=== PATIENT | female | born 1980 | race Caucasian/White ===

== ENCOUNTER → 2017-01-09 | Outpatient (CLI) | payer OTHER ==
--- NOTE | 2017-01-12 17:16 | RAD ---
EXAM DESCRIPTION: Wrist,Right 3 Views CLINICAL HISTORY: 36 years, Female, CLOSED FX OF DISTAL END OF RADIUS COMPARISON: None FINDINGS: Three-view right wrist demonstrates nondisplaced nonangulated intra-articular fracture distal radial epiphysis extending into the medial aspect of the joint. No ulnar fracture. Carpal bones unremarkable. IMPRESSION: 1. Nondisplaced nonangulated intra-articular fracture distal radius-acute Electronically signed by: Jaziel Tellez MD 01/12/2017 5:15 PM CDT
== END | disposition home or self-care (01) ==
LOC: RAD 07:26
PROVIDERS: ATTEND Orthopaedic Surgery
DX: S52.501A Unspecified fracture of the lower end of right radius, initial encounter for closed fracture (principal)

== ENCOUNTER → 2017-01-23 | Outpatient (CLI) | payer OTHER ==
--- NOTE | 2017-01-23 16:44 | RAD ---
EXAM DESCRIPTION: Wrist,Right 3 Views right CLINICAL HISTORY: 36 years, Female, FX radius COMPARISON: January 09 FINDINGS: Intra-articular nondisplaced fracture distal medial radius shows interval but incomplete healing. Less soft tissue swelling around the fracture. IMPRESSION: Interval but incomplete healing distal medial radial intra-articular fracture. Stable alignment. Decreased soft tissue swelling. Electronically signed by: Robert Ravi MD 01/23/2017 4:43 PM CDT
== END | disposition home or self-care (01) ==
LOC: RAD 07:21
PROVIDERS: ATTEND Orthopaedic Surgery
DX: S52.501D Unspecified fracture of the lower end of right radius, subsequent encounter for closed fracture with routine healing (principal)

== ENCOUNTER → 2017-02-06 | Outpatient (CLI) | payer OTHER ==
--- NOTE | 2017-02-07 08:40 | RAD ---
EXAM DESCRIPTION: Wrist,Right 3 Views CLINICAL HISTORY: UNSPECIFIED FRACTURE OF THE LOWER END OF RIGHT RADIUS FINDINGS/ IMPRESSION: Comparison 01/23/2017 Continued healing distal radial fracture with faint sclerotic line seen at the metaphysis epiphysis junction. No acute bony abnormality Electronically signed by: Sonny Stoner MD 02/07/2017 8:39 AM CDT
== END | disposition home or self-care (01) ==
LOC: RAD 07:33
PROVIDERS: ATTEND Orthopaedic Surgery
DX: S52.501D Unspecified fracture of the lower end of right radius, subsequent encounter for closed fracture with routine healing (principal)

== ENCOUNTER → 2018-08-05 | Outpatient (CLI) | payer BC ==
--- NOTE | 2018-08-06 11:33 | MAM ---
EXAM DESCRIPTION: 3D Diagnostic, Left: Digital Mammography CLINICAL HISTORY: 37 yearsFemaleINCONCLUSIVE STUDY anterior lateral left breast mass.. No personal or family history of breast cancer. Childbirth. Premenopausal. No HRT. Lifetime risk of developing breast cancer (Tyrer-Cuzick model) percentage is 11.1. COMPARISON: 2-D digital screening bilateral mammography 08/29/2015. Targeted bilateral breast ultrasound included with this examination.. TECHNIQUE: Bilateral MLO, CC, and LM projection full-field images, digital mammographic tomosynthesis technique. Bilateral 2-D digital full-field MLO images. CAD not utilized. FINDINGS: The breast parenchymal density pattern is: Heterogeneously dense breast tissue, which may obscure small masses. No skin thickening or nipple retraction skin marker anterior left breast 3:00-4:00 position 3 cm from the nipple. Circumscribed masslike densities 4 clock position left breast in the anterior third in the middle third. Approximate diameter 2.8 and 2.2 cm. The more posterior mass is approximately 6 cm from the nipple. Not associated with microcalcifications. Multiple circumscribed mass densities noted in the anterior middle and posterior third of the right breast. Approximately 5 of these are visualized. These range in size from 1.4 cm to 2.1 cm. Location 8:30 to 10:00 positions with the most posterior mass approximately 6.5 cm from the nipple. Not associated with calcifications. There are small calcifications bilaterally which are solitary. Ultrasound: Scanning of the right breast from the nipple to the chest wall at the 8:00 to 10:00 sector. Mostly fibroglandular heterogeneous tissues with minimal fatty echotexture. Multiple anechoic cysts are noted with thin circumscribed mckeon, no internal echogenicity, nonvascular, parallel orientation and posterior acoustic enhancement. One cyst measures 1.8 x 2.0 x 0.9 cm. Second cyst measures 2.2 x 2.4 x 0.9 cm. A third cyst measures 1.4 x 0.9 x 2.0 cm. A fourth cyst measures 3.2 x 4.0 x 1.0 cm. No dominant solid mass. No parenchymal edema or large calcifications. No overlying skin changes or abnormal vascularity. Scanning of the left breast from the nipple to the chest wall. Similar to the right breast with predominantly fibroglandular tissues with scattered islands of fatty tissue. Scanning 3:00 position 2 cm from the nipple demonstrates a cyst similar in appearance and sonographic characteristics to the right breast. This cyst measures 2.8 x 2.7 x 2.0 cm. A smaller cyst which was not measured can be seen superior to this cyst. No dominant solid mass. No parenchymal edema or large calcifications. No overlying skin changes or abnormal vascularity. IMPRESSION: Benign exam. BIRAD CATEGORY: 2 BENIGN FINDINGS. RECOMMENDATIONS: FOLLOW UP: Routine digital bilateral mammographic screening, one year interval from July 2018. Discussed with patient options for removal or aspiration of the cyst in the left breast which is tender and uncomfortable. The FINDINGS and the FOLLOW-UP plan were reviewed in person with the patient after the examination. Written communication explaining the IMPRESSION and FOLLOW-UP will be mailed to the patient and referring care provider. According to the [employer], yearly mammograms are recommended starting at age 40 and continuing as long as a woman is in good health. Any breast change noted on a breast self-exam should be reported promptly to the patient's healthcare provider. Breast MRI is recommended for women with an approximately 20-25% or greater lifetime risk of breast cancer, including women with a strong family history of breast or ovarian cancer and women who have been treated for Hodgkin's disease. A negative mammographic report should not delay tissue diagnosis in patients with significant clinical history or physical findings. Extremely dense breast tissue limits the sensitivity of digital mammography. Electronically signed by: Carroll Richey MD 08/06/2018 11:30 AM MICROSOFT ACCESS DEVELOPER
--- NOTE | 2018-08-06 11:47 | US ---
EXAM DESCRIPTION: Breast,Bilateral: Ultrasound CLINICAL HISTORY: 37 yearsFemaleABN MAMMO COMPARISON: Other TECHNIQUE: Transcutaneous scanning of the bilateral breasts utilizing aguirre-scale and Doppler modes. Scanning performed by the hoop punch and coiler operator and Dr. Richey. FINDINGS: Scanning of the right breast from the nipple to the chest wall at the 8:00 to 10:00 sector. Mostly fibroglandular heterogeneous tissues with minimal fatty echotexture. Multiple anechoic cysts are noted with thin circumscribed mckeon, no internal echogenicity, nonvascular, parallel orientation and posterior acoustic enhancement. One cyst measures 1.8 x 2.0 x 0.9 cm. Second cyst measures 2.2 x 2.4 x 0.9 cm. A third cyst measures 1.4 x 0.9 x 2.0 cm. A fourth cyst measures 3.2 x 4.0 x 1.0 cm. No dominant solid mass. No parenchymal edema or large calcifications. No overlying skin changes or abnormal vascularity. Scanning of the left breast from the nipple to the chest wall. Similar to the right breast with predominantly fibroglandular tissues with scattered islands of fatty tissue. Scanning 3:00 position 2 cm from the nipple demonstrates a cyst similar in appearance and sonographic characteristics to the right breast. This cyst measures 2.8 x 2.7 x 2.0 cm. A smaller cyst which was not measured can be seen superior to this cyst. No dominant solid mass. No parenchymal edema or large calcifications. No overlying skin changes or abnormal vascularity. IMPRESSION: 1. Bi-Rads Category 2: Benign. 2. Please refer to bilateral diagnostic digital breast tomosynthesis examination on this visit. The FINDINGS and the FOLLOW-UP plan were reviewed in person with the patient after the examination. Written communication explaining the IMPRESSION and FOLLOW-UP will be mailed to the patient and referring care provider. Electronically signed by: Carroll Richey MD 08/06/2018 11:44 AM COMPUTER LAB ASSISTANT
== END ==
LOC: MAMMO 14:52
PROVIDERS: ATTEND Obstetrics & Gynecology
DX: R92.8 Other abnormal and inconclusive findings on diagnostic imaging of breast (principal)
CPT/HCPCS: 76641; 77065; G0279

== ENCOUNTER 2019-09-04 23:17 | Emergency (ER) | payer BC, OTHER ==
[2019-09-04] MEDS ORDERED: ONDANSETRON ODT 8 MG TAB SL ONE (23:28)
[2019-09-04] MEDS ORDERED: KETOROLAC TROMETHAMINE INJ 30 MG/ML VIAL IM ONE (23:28)
[2019-09-05] MEDS ORDERED: ALUM & MAG HYDROX-SIMETHICONE 30 ML, LIDOCAINE VISCOUS 2% 15 ML PO ONE ×2 (00:03)
[2019-09-05] MEDS ORDERED: ALUM & MAG HYDROX-SIMETHICONE 30 ML UD ONE (00:07)
[2019-09-05] MEDS ORDERED: LIDOCAINE HCL 2% (MOUTH-THROAT) 15 ML UD ONE (00:07)
--- NOTE | 2019-09-05 00:07 | RAD ---
EXAM DESCRIPTION: Abdomen Series CLINICAL HISTORY: 39 years Female ,nv, ruq pain COMPARISON: None. TECHNIQUE: Frontal view chest x-ray and two views of the abdomen. FINDINGS: The cardiomediastinal silhouette appears unremarkable. No consolidating infiltrates or pleural effusions. No free air is identified beneath the hemidiaphragms. No dilated loops of bowel to suggest obstruction. IMPRESSION: No acute plain film abnormality is identified. Electronically signed by: Kristan Marina MD 09/05/2019 12:05 AM CDT
--- NOTE | 2019-09-05 01:07 | CT ---
EXAM: CT Abdomen and Pelvis Without Intravenous Contrast CLINICAL HISTORY: 39 years old Female; right sided abd pain, acute onset. TECHNIQUE: Axial computed tomography images of the abdomen and pelvis without intravenous contrast. Sagittal and coronal reformatted images were created and reviewed. This CT exam was performed using one or more of the following dose reduction techniques: automated exposure control, adjustment of the mA and/or kV according to patient size, and/or use of iterative reconstruction technique. COMPARISON: No relevant prior studies available. FINDINGS: LIMITATIONS: Study provided limited by lack of intravenous contrast. LUNG BASES: Lung bases clear. ABDOMEN: LIVER: Unremarkable. GALLBLADDER AND BILE DUCTS: Normal without CT evidence of acute cholecystitis. PANCREAS: Unremarkable. No ductal dilation. SPLEEN: Spleen not enlarged without focal abnormality seen. One small splenule. ADRENALS: Unremarkable. No mass. KIDNEYS AND URETERS: No renal/ureteral stone or hydroureteronephrosis seen bilaterally. An underlying renal mass and pyelonephritis cannot be ruled out without intravenous contrast. STOMACH AND BOWEL: Moderate fecal retention in the proximal colon including some high density fecal material and diffuse distal colonic spasm without bowel obstruction. PELVIS: APPENDIX: Appendix distended with fluid up to approximately 7 mm in diameter. Favor a small amount of fecalith material in the appendiceal base. Minimal periappendiceal fat stranding. No loculated periappendiceal fluid collection seen. BLADDER: No urinary bladder wall thickening or filling defect seen. REPRODUCTIVE: Uterus is somewhat prominent and heterogeneous in density suggesting fibroid change, mildly asymmetrically positioned in the left pelvis. Favor prominent follicles/small cysts in each ovary, however, ovaries are difficult to distinguish from bowel loops in the pelvis on this limited noncontrast-enhanced examination. ABDOMEN and PELVIS: INTRAPERITONEAL SPACE: No pneumoperitoneum. No free fluid or loculated fluid collection seen. BONES/JOINTS: No acute bony abnormality seen. Favor moderate lumbar scoliosis. SOFT TISSUES: Some stranding and small pockets of air in the subcutaneous fat of the right flank may relate to a small amount of fat necrosis. VASCULATURE: Small amount of calcified atherosclerotic disease in the abdominal aorta without aneurysmal dilatation. Multiple small phleboliths noted in the pelvis bilaterally. LYMPH NODES: No pathologic lymphadenopathy identified. IMPRESSION: - No renal/ureteral stone or hydroureteronephrosis seen bilaterally. An underlying renal mass and pyelonephritis cannot be ruled out without intravenous contrast. - Appendix distended with fluid up to approximately 7 mm in diameter. Favor a small amount of fecalith material in the appendiceal base. Minimal periappendiceal fat stranding. No loculated periappendiceal fluid collection seen. Findings most suspicious for developing acute appendicitis, however, clinical correlation is suggested. No pneumoperitoneum. - Moderate fecal retention in the proximal colon including some high density fecal material and diffuse distal colonic spasm without bowel obstruction. - This result was discussed directly with the referring clinician, Dr. Luís Garcia, via telephone on 09/05/2019 12:52 AM CDT. - Study provided limited by lack of intravenous contrast. Thank you for allowing us to participate in the care of this patient. Electronically signed by: Woo Flores MD 09/05/2019 1:05 AM CDT
[2019-09-05] MEDS ORDERED: PIPERACILLIN/TAZOBACTAM 3.375 GM in SODIUM CHLORIDE 0.9% 100ML 100 ML IVPB ONE (01:13)
[2019-09-05] MEDS ORDERED: SODIUM CHLORIDE 0.9% 1000ML 1,000 ML IVS ONE (01:16)
[2019-09-05] MEDS ORDERED: PIPERACILLIN/TAZOBACTAM 3.375 GM VIAL IVPB ONE (01:17)
[2019-09-05] MEDS ORDERED: SODIUM CHLORIDE 0.9% 100ML 100 ML IVPB ONE (01:18)
--- NOTE | 2019-09-05 01:24 | ED.PDOC ---
History of Present Illness - General Chief Complaint: Abdominal Pain Stated Complaint: abdominal alex Time Seen by Provider: 09/04/19 23:21 Source: patient Exam Limitations: no limitations - History of Present Illness Initial Comments: The patient is a 39-year-old female presented emergency room due to severe pain that started this afternoon around 4 PM with some associated nausea and vomiting. Pain was initially more towards the upper abdomen but has gradually radiated to the right lower quadrant as the day progressed. No blood or bile in the vomitus. She is obviously in significant pain upon arrival. On further questioning the patient has had intermittent gradually increasing pain over the last 3 days as well. No fevers. She still has her appendix. She is tender to palpation in the right lower quadrant. Timing/Duration: unsure Severity: severe Improving Factors: medication Worsening Factors: eating Associated Symptoms: loss of appetite, malaise, nausea/vomiting Allergies/Adverse Reactions: Allergies NO KNOWN ALLERGY Allergy (Verified 09/04/19 23:37) Review of Systems - Review of Systems Constitutional: States: malaise EENTM: States: no symptoms reported Respiratory: States: no symptoms reported Cardiology: States: no symptoms reported Gastrointestinal/Abdominal: States: abdominal pain, nausea, vomiting Genitourinary: States: no symptoms reported Musculoskeletal: States: no symptoms reported Skin: States: no symptoms reported Neurological: States: no symptoms reported Endocrine: States: no symptoms reported All other Systems: No Change from Baseline Past Medical History (General) - Patient Medical History Hx Seizures: No Hx Stroke: No Hx Dementia: No Hx Asthma: No Hx of COPD: No Hx Cardiac Disorders: No Hx Congestive Heart Failure: No Hx Pacemaker: No Hx Hypertension: No Hx Thyroid Disease: No Hx Diabetes: No Hx Gastroesophageal Reflux: No Hx Renal Disease: No Hx Cancer: No Hx of HIV: No Hx Hepatitis C: No 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 Source:: Wound Surgical History: other - Vaccination History Hx Tetanus, Diphtheria Vaccination: No Hx Influenza Vaccination: Yes Hx Pneumococcal Vaccination: No Immunizations Up to Date: Yes - Social History Hx Tobacco Use: No Hx Chewing Tobacco Use: No Hx Alcohol Use: No Hx Substance Use: No Hx Substance Use Treatment: No Hx Depression: No Feels Threatened In Home Enviroment: No Feels Threatened In a Relationship: No Hx Physical Abuse: No Hx Emotional Abuse: No Hx Suspected Abuse: No - Female History Patient is a Female of Child Bearing Age (10 -59 yrs old): Yes Patient : - denies Family Medical History - Family History Mother Family History: No Known Physical Exam - Physical Exam General Appearance: Alert, Obvious distress Eye Exam: bilateral normal Ears, Nose, Throat: hearing grossly normal, normal pharynx Neck: non-tender, supple Respiratory: lungs clear, normal breath sounds, no respiratory distress, no accessory muscle use Cardiovascular/Chest: normal peripheral pulses, regular rate, rhythm, no edema Peripheral Pulses: radial,right: 2+, radial,left: 2+ Gastrointestinal/Abdominal: other - The patient does have right lower quadrant pain to palpation. There is some guarding. Rectal Exam: deferred Back Exam: no CVA tenderness, no vertebral tenderness Extremity: normal range of motion, non-tender, normal inspection, no pedal edema, normal capillary refill Neurologic: certified medical asst II-XII nml as tested, alert, normal mood/affect, oriented x 3 Skin Exam: normal color Comments: Vital Signs - 24 hr 09/04/19 09/05/19 09/05/19 23:27 00:17 01:00 Temperature 98.4 F 98.6 F Pulse Rate [ 82 67 72 monitor] Respiratory 18 18 18 Rate Blood Pressure 128/75 104/68 97/52 [Right Arm] O2 Sat by Pulse 96 95 99 Oximetry Progress - Progress Progress: 09/05/19 01:24 The patient is a 39-year-old female presented emergency room with escalating right lower quadrant pain and nausea and vomiting. She appears to have early appendicitis. No abscess formation and no perforation at this time. She will be made n.p.o. and is being started on Zosyn. She is also receiving a liter of IV fluids. She has received 1 dose of Toradol and she will be receiving opiate pain medication prior to transfer. Patient is in agreement with the plan. - Results/Orders Results/Orders: CT scan of abdomen pelvis without contrast shows what appears to be a mild early appendicitis with a fluid-filled 7 mm appendix with a fecalith at the base as well as some periappendiceal fat stranding. This does correlate with the clinical picture. See report for details. Laboratory Tests 09/04/19 09/04/19 09/04/19 23:42 23:42 23:42 WBC 14.6 H RBC 4.53 Hgb 13.6 Hct 40.4 MCV 89.1 MCH 30.1 MCHC 33.8 RDW 12.6 Plt Count 325 MPV 6.6 L Absolute Neuts (auto) 12.20 H Absolute Lymphs (auto) 1.30 Absolute Monos (auto) 0.70 Absolute Eos (auto) 0.10 Absolute Basos (auto) 0.10 Neutrophils % 83.7 H Lymphocytes % 9.2 L Monocytes % 5.1 Eosinophils % 1.0 Basophils % 1.0 Sodium 138 Potassium 3.4 L Chloride 102 Carbon Dioxide 23 Anion Gap 16.4 BUN 17 Creatinine 0.63 BUN/Creatinine Ratio 27.0 H Random Glucose 105 Serum Osmolality 277.6 Calcium 9.7 Total Bilirubin 0.7 AST 27 ALT 22 Alkaline Phosphatase 34 L Serum Total Protein 7.6 Albumin 4.6 Globulin 3.0 Albumin/Globulin Ratio 1.5 Amylase 88 Lipase 26 Urine Color Urine Appearance Urine pH Ur Specific Tiger Urine Protein Urine Glucose (UA) Urine Ketones Urine Blood Urine Nitrite Urine Bilirubin Urine Urobilinogen Ur Leukocyte Esterase Urine RBC Urine WBC Ur Epithelial Cells Urine Bacteria Urine HCG, Qual 09/04/19 09/04/19 23:43 23:43 WBC RBC Hgb Hct MCV MCH MCHC RDW Plt Count MPV Absolute Neuts (auto) Absolute Lymphs (auto) Absolute Monos (auto) Absolute Eos (auto) Absolute Basos (auto) Neutrophils % Lymphocytes % Monocytes % Eosinophils % Basophils % Sodium Potassium Chloride Carbon Dioxide Anion Gap BUN Creatinine BUN/Creatinine Ratio Random Glucose Serum Osmolality Calcium Total Bilirubin AST ALT Alkaline Phosphatase Serum Total Protein Albumin Globulin Albumin/Globulin Ratio Amylase Lipase Urine Color Yellow Urine Appearance Clear Urine pH 8.5 H Ur Specific Tiger 1.020 Urine Protein Negative Urine Glucose (UA) Negative Urine Ketones 40 H Urine Blood Trace-intact H Urine Nitrite Negative Urine Bilirubin Negative Urine Urobilinogen 0.2 Ur Leukocyte Esterase Negative Urine RBC 0-1 Urine WBC 0-1 Ur Epithelial Cells 3-5 Urine Bacteria Rare Urine HCG, Qual Negative Departure - Departure Clinical Impression: Appendicitis Qualifiers: Appendicitis type: acute appendicitis Acute appendicitis type: with localized peritonitis Appendicitis gangrene presence: unspecified whether gangrene present Appendicitis perforation presence: without perforation Appendicitis abscess presence: without abscess Qualified Code(s): K35.30 - Acute appendicitis with localized peritonitis, without perforation or gangrene Disposition: Transfer to Hospital Condition: Serious Departure Forms: ED Discharge - Pt. Copy, Patient Portal Self Enrollment Referrals: JOSTIN HERNANDEZ MD [Primary Care Provider] - 1-2 Weeks Transfer to Outside Facility - Transfer Information Decision to Transfer Date: 09/05/19 Decision to Transfer Time: 01:26 Reason for Transfer: specialized care not available Accepting Provider:: dr coy Accepting Facility: [facility]
[2019-09-05] MEDS ORDERED: HYDROmorphone HCL INJ 2 MG/ML VIAL IV ONE (02:15)
[2019-09-05 02:34] VITALS: BP 94/52; TEMP 98.4; O2SAT 95
== END 2019-09-05 02:25 | disposition short-term general hospital (02) ==
LOC: ER 23:17
DX: K35.30 Acute appendicitis with localized peritonitis, without perforation or gangrene (principal); R11.2 Nausea with vomiting, unspecified
CPT/HCPCS: 74019; 74176; 80053; 81001; 81025; 82150; 83690; 85025; J1170; J1885; J2543; J7030; J7050